=== PATIENT | male | born 1995 | race African-American/Black ===

== ENCOUNTER 2018-02-17 23:27 | Emergency (ER) | payer OTHER ==
--- NOTE | 2018-02-18 00:46 | RADIOLOGY REPORT (SQ) ---
EXAM DESCRIPTION: US SCROTUM COMPLETED DATE/TME: 02/17/2018 23:30 CLINICAL HISTORY: 22 years, Male, left testicular pain COMPARISON: None. LIMITATIONS: None. FINDINGS: 4.6 cm right testis, 4.5 cm left testis, two left-sided epididymal cyst/spermatocele measure up to 0.3 cm each, small left hydrocele, moderate left lateral varicocele with vessels diameter up to 0.3 cm, and otherwise normal size, shape, echotexture, and vascularity of scrotal structures. IMPRESSION: 1. Moderate left varicocele. 2. Normal testes.
--- NOTE | 2018-02-18 00:48 | ER Document Report ---
ED General - General Mode of Arrival: Ambulatory Information source: Patient TRAVEL OUTSIDE OF THE [place] IN LAST 30 DAYS: No <IMANI BUNCH - Last Filed: 02/18/18 02:58> <RONNY ROCHA - Last Filed: 02/18/18 04:13> - General Chief Complaint: Testicular Pain Stated Complaint: ABDOMINAL PAIN Time Seen by Provider: 02/17/18 23:55 Notes: 22 y.o. male presents to the ED with pain to his LT testicle and LLQ pain that he describes as a "tightness". Pt reports that he has been having this pain for the past couple of months that worsens with heavy lifting. Pt states that he went to the Urgent Care a few days ago and had an ultrasound that did not show any twisted tubes and was told that everything was normal. Pt reports that he has noted some edema to his LT testicle. He denies any dysuria, color change, discharge, blood in sperm or pain with sex. Pt also denies any fever, N/V/D, constipation or changes to his diet. He reports regular BMs that have been hard recently. Pt also notes a ZAYAS of onset yesterday. He states that she was drinking a smoothie yesterday and sneezed which had caused some of the smoothie to come up through his nose, a sore throat and a mild ZAYAS. Pt denies taking any medications at home other than Ibuprofen occasionally for his pain. He reports some relief with the Ibuprofen. (IMANI BUNCH) - Related Data Allergies/Adverse Reactions: No Known Allergies Allergy (Unverified 09/25/15 02:28) Past Medical History - General Information source: Patient - Social History Smoking Status: Unknown if Ever Smoked Family History: None Patient has suicidal ideation: No Patient has homicidal ideation: No Pulmonary Medical History: Reports: Hx Asthma Renal/ Medical History: Denies: Hx Peritoneal Dialysis - Immunizations Hx Diphtheria, Pertussis, Tetanus Vaccination: Yes <IMANI BUNCH - Last Filed: 02/18/18 02:58> - Social History Drug Abuse: None <RONNY ROCHA - Last Filed: 02/18/18 04:13> Review of Systems - Review of Systems Constitutional: See HPI. denies: Fever EENT: See HPI Cardiovascular: No symptoms reported Respiratory: No symptoms reported Gastrointestinal: See HPI, Abdominal pain. denies: Diarrhea, Nausea, Vomiting, Constipation Genitourinary: denies: Dysuria Male Genitourinary: See HPI, Testicular pain. denies: Penile discharge Musculoskeletal: No symptoms reported Skin: No symptoms reported Hematologic/Lymphatic: No symptoms reported Neurological/Psychological: See HPI, Headaches -: Yes All other systems reviewed and negative <IMANI BUNCH - Last Filed: 02/18/18 02:58> Physical Exam <IMANI BUNCH - Last Filed: 02/18/18 02:58> <RONNY ROCHA - Last Filed: 02/18/18 04:13> - Vital signs Vitals: Temp Pulse Resp BP Pulse Ox 98.2 F 84 18 112/71 98 02/17/18 23:50 02/17/18 23:50 02/17/18 23:50 02/17/18 23:50 02/17/18 23:50 - Notes Notes: PHYSICAL EXAM GENERAL: Alert, interacts well. No acute distress. HEAD: Normocephalic, atraumatic. EYES: Pupils equal, round, and reactive to light. Extraocular movements intact. ENT: Oral mucosa moist, tongue midline. NECK: Full range of motion. Supple. Trachea midline. LUNGS: Clear to auscultation bilaterally, no wheezes, rales, or rhonchi. No respiratory distress. HEART: Regular rate and rhythm. No murmurs, gallops, or rubs. ABDOMEN: Soft. TTP to the LLQ. Non-distended. Bowel sounds present in all 4 quadrants. No guarding, rebound, or rigidity. EXTREMITIES: Moves all 4 extremities spontaneously. No edema. No cyanosis. NEUROLOGICAL: Alert and oriented x3. Normal speech. PSYCH: Normal affect, normal mood. SKIN: Warm, dry, normal turgor. No rashes or lesions noted. GENITOURINARY: Cremasteric reflex intact bilaterally. Complains of mild TTP to LT testicle itself. Small amount of edema just above the LT testicle. Very small inguinal hernia palpable with cough, not elicited when barring down. No skin lesions, no erythema. (IMANI BUNCH) The very small inguinal hernia is on the left. (RONNY ROCHA) Course <IMANI BUNCH - Last Filed: 02/18/18 02:58> <RONNY ROCHA - Last Filed: 02/18/18 04:13> - Re-evaluation Re-evalutation: 02/18/18 02:52 Urinalysis unremarkable, gonorrhea and chlamydia negative, scrotal ultrasound was performed and reveals 2 left-sided epididymal cysts/spermatoceles, small left hydrocele and moderate left lateral varicocele, normal testes, good blood flow. Physical examination did reveal a very small left inguinal hernia. Both the varicocele in the hernia are likely contributing to his pain. Neither needs emergent surgery. Did discuss with the patient that either of these could possibly end up needing surgery. Recommended that the patient wear supportive underwear, follow with urology for the varicocele and return for significantly increased pain, swelling or any new or concerning symptoms. At present I do not really know what to make of his headache and stuffy nose after choking on a smoothie. Patient has no acute findings on neurologic examination, no suggestion of meningitis. Patient is recommended to use Advil and Tylenol and discharged to home. (RONNY ROCHA) - Vital Signs Vital signs: Temp Pulse Resp BP Pulse Ox 98 F 83 18 106/68 99 02/18/18 03:08 02/18/18 03:08 02/18/18 03:08 02/18/18 03:08 02/18/18 03:08 Discharge <IMANI BUNCH - Last Filed: 02/18/18 02:58> <RONNY ROCHA - Last Filed: 02/18/18 04:13> - Discharge Clinical Impression: Left testicular pain, Left varicocele, Mild left inguinal hernia Condition: Stable Disposition: HOME, SELF-CARE Additional Instructions: Hernia You have a hernia. A hernia forms at a weak spot in the abdominal wall. Bowel slips out of the abdominal cavity into the weak spot. Hernias tend to occur in the groin (especially in males), the fold of the thigh, the naval, or at a surgical scar. Surgical repair of the defect is usually necessary. The problem tends to get worse. It's important that you follow up as recommended, however yours is very mild and you may not end up needing surgery. Please wear supportive underwear and lift with your knees and not with your back. For now, you should avoid straining, heavy lifting, and vigorous exercise. Complications occur if the hernia becomes tightly stuck. You should come back immediately if the area becomes increasingly painful, swollen, or discolored, or if you develop abdominal pain and vomiting. Please use ibuprofen (Motrin or Advil) 600-800 mg every 8 hours as needed for pain or fever. You may also use acetaminophen (Tylenol) 1000 mg every 4-6 hours as needed for pain or fever. Please be aware that many medications contain acetaminophen, do not exceed a total of 1000 mg of acetaminophen every 6 hours. Referrals: CECILIA BOSCH MD [ACTIVE STAFF] - Follow up as needed LOCALID,RORY [Primary Care Provider] - Follow up as needed RICKY HERNANDEZ MD [[facility]] - Follow up as needed Scribe Attestation: 02/18/18 04:13 I personally performed the services described in the documentation, reviewed and edited the documentation which was dictated to the scribe in my presence, and it accurately records my words and actions. (RONNY ROCHA) Scribe Documentation - Scribe Written by Joaquin:: Joaquin Patton 02/18/18 0047 acting as scribe for :: Sophia <IMANI BUNCH - Last Filed: 02/18/18 02:58>
[2018-02-18 01:15] LABS: APPEARANCE,URINE CLEAR; BILIRUBIN,URINE NEGATIVE (NEGATIVE); COLOR,URINE YELLOW; GLUCOSE, URINE NEGATIVE (NEGATIVE); KETONES,URINE NEGATIVE (NEGATIVE); LEUKOCYTE ESTERASE,URINE NEGATIVE (NEGATIVE); NITRITE,URINE NEGATIVE (NEGATIVE); PROTEIN,URINE NEGATIVE (NEGATIVE); URINE SPECIFIC GRAVITY 1.014; UROBILINOGEN,URINE NEGATIVE mg/dL (<2.0)
[2018-02-18 02:42] LABS: CHLAM PCR NOT DETECTED (NOT DETECT); GON PCR NOT DETECTED (NOT DETECT)
[2018-02-18 03:09] VITALS: BP 106/68
== END 2018-02-18 03:09 | disposition home or self-care (01) ==
LOC: ER 23:27
DX: I86.1 Scrotal varices (principal); K40.90 Unilateral inguinal hernia, without obstruction or gangrene, not specified as recurrent; N50.812 Left testicular pain; R10.32 Left lower quadrant pain; N50.89 Other specified disorders of the male genital organs; R51 Headache; J02.9 Acute pharyngitis, unspecified; X50.0XXA Overexertion from strenuous movement or load, initial encounter; J45.909 Unspecified asthma, uncomplicated
CPT/HCPCS: 76870; 81001; 87491; 87591; 93976; 99284

== ENCOUNTER 2018-11-23 12:18 | Emergency (ER) | payer OTHER ==
--- NOTE | 2018-11-23 12:57 | ER Document Report ---
ED Extremity Problem, Lower - General Chief Complaint: Foot Injury Stated Complaint: FOOT/LEG PAIN Time Seen by Provider: 11/23/18 12:40 Primary Care Provider: [facility] [Provider [facility]] - Follow up as needed LOCALRORY ALEX [NO LOCAL MD] - Follow up as needed Mode of Arrival: Ambulatory Information source: Patient Notes: 23-year-old male presents to ED for complaint of left foot and ankle pain after he injured it while playing basketball yesterday. He does have swelling and bruising to the left lateral ankle. Patient is alert oriented respirations regular and unlabored speaking in full sentences walks with a even steady gait. TRAVEL OUTSIDE OF THE [place] IN LAST 30 DAYS: No - HPI Patient complains to provider of: Injury, Pain, Swelling Location: Ankle, Foot Occurred: Yesterday Where: Outdoors, Sports Onset/Duration: Persistent Quality of pain: Achy, Throbbing Severity: Moderate Pain Level: 4 Context: Other - Rolled his ankle Recent injury: Yes Associated symptoms: Painful ambulation Exacerbated by: Hanging down, Movement, Walking Relieved by: Elevation, Ice, Rest - Related Data Allergies/Adverse Reactions: No Known Allergies Allergy (Verified 11/23/18 12:22) Past Medical History - General Information source: Patient - Social History Smoking Status: Never Smoker Frequency of alcohol use: None Drug Abuse: None Lives with: Family Family History: None Patient has suicidal ideation: No Patient has homicidal ideation: No - Past Medical History Cardiac Medical History: Reports: None Pulmonary Medical History: Reports: Hx Asthma EENT Medical History: Reports: None Neurological Medical History: Reports: None Endocrine Medical History: Reports: None Renal/ Medical History: Reports: None GI Medical History: Reports: Other - Inguinal hernia not repaired yet Musculoskeletal Medical History: Reports None Skin Medical History: Reports None Psychiatric Medical History: Reports: None Traumatic Medical History: Reports: None Infectious Medical History: Reports: None Past Surgical History: Reports: Hx Oral Surgery - [place] teeth - Immunizations Immunizations up to date: Yes Hx Diphtheria, Pertussis, Tetanus Vaccination: Yes Review of Systems - Review of Systems Constitutional: No symptoms reported EENT: No symptoms reported Cardiovascular: No symptoms reported Respiratory: No symptoms reported Gastrointestinal: No symptoms reported Genitourinary: No symptoms reported Male Genitourinary: No symptoms reported Musculoskeletal: No symptoms reported, Ankle swelling - Left ankle pain and swelling ecchymosis to the lateral aspect of the foot and ankle Skin: No symptoms reported Hematologic/Lymphatic: No symptoms reported Neurological/Psychological: No symptoms reported -: Yes All other systems reviewed and negative Physical Exam - Vital signs Vitals: Temp Pulse Resp BP Pulse Ox 98.5 F 78 18 110/57 L 97 11/23/18 12:25 11/23/18 12:25 11/23/18 12:25 11/23/18 12:25 11/23/18 12:25 Interpretation: Normal - General General appearance: Appears well, Alert - HEENT Head: Normocephalic, Atraumatic Eyes: Normal Pupils: PERRL - Respiratory Respiratory status: No respiratory distress Chest status: Nontender Breath sounds: Normal Chest palpation: Normal - Cardiovascular Rhythm: Regular Heart sounds: Normal auscultation Murmur: No - Abdominal Inspection: Normal Distension: No distension Bowel sounds: Normal Tenderness: Nontender Organomegaly: No organomegaly - Back Back: Normal, Nontender - Extremities General upper extremity: Normal inspection, Nontender, Normal color, Normal ROM, Normal temperature General lower extremity: Normal temperature. No: Korey's sign Ankle: Tender, Ecchymosis, Edema. No: Abrasion, Deformity, Instability, Laceration, Limited ROM - Pain with range of motion, Positive Blue's test, Unable to bear weight Foot: Tender, Ecchymosis, Edema, No evidence of FB. No: Unable to bear weight - Neurological Neuro grossly intact: Yes Cognition: Normal Orientation: AAOx4 [place] Coma Scale Eye Opening: Spontaneous [place] Coma Scale Verbal: Oriented [place] Coma Scale Motor: Obeys Commands [place] Coma Scale Total: 15 Speech: Normal Motor strength normal: LUE, RUE, LLE, RLE Sensory: Normal - Psychological Associated symptoms: Normal affect, Normal mood - Skin Skin Temperature: Warm Skin Moisture: Dry Skin Color: Normal Course - Re-evaluation Re-evalutation: 11/23/18 21:11 The patient is nontoxic appearing with stable vitals. They are afebrile. Ankle exam shows no deformities with no obvious ligament instability. There is a normal pulse and sensation distally. There is no redness or signs of infection. X-rays show no acute fracture per the radiologist. Patient will be placed in an Rudi wrap for comfort. Crutches will be offered and given if requested. Patient will be instructed to follow-up with not better in 1 week, sooner for increasing pain, fever, redness, numbness, tingling, weakness, any further concerns. Patient will be instructed to rest, ice, elevate their ankle. - Vital Signs Vital signs: Temp Pulse Resp BP Pulse Ox 98.6 F 79 16 112/67 98 11/23/18 13:44 11/23/18 13:44 11/23/18 13:44 11/23/18 13:44 11/23/18 13:44 - Diagnostic Test Radiology reviewed: Image reviewed, Reports reviewed Procedures - Immobilization Left Ankle Time completed: 13:50 Pre-Proc Neuro Vasc Exam: Normal Immobilizer type: Rudi wrap, Ankle stirrup, Crutches Performed by: PCT Post-Proc Neuro Vasc Exam: Normal Alignment checked and good: Yes Discharge - Discharge Clinical Impression: Left ankle sprain Qualifiers: Encounter type: initial encounter Involved ligament of ankle: unspecified ligament Qualified Code(s): S93.402A - Sprain of unspecified ligament of left ankle, initial encounter Condition: Stable Disposition: HOME, SELF-CARE Instructions: Family Physicians / Practices Additional Instructions: SPRAINED ANKLE: Your sprained ankle results from stretching or tearing of the ligaments which support the ankle. This usually results from twisting the foot inward and under. The ligaments will require time and protection in order to heal properly. Many ankle sprains are quite disabling, and should be taken seriously. The usual treatment for an ankle sprain is cold packs; protection with tape, splints, or wraps; elevation; and staying off the ankle for at least a day. As the ankle improves, you can walk IF it's not painful to bear weight. Sports are best postponed until healing is complete. More serious sprains usually require strengthening exercises after early healing. Your physician has assessed the seriousness of the ligament injury to your ankle. However, the treatment may change, depending on how your ankle progresses. If further exams were recommended, it is important that you follow through. Call the doctor if your foot becomes numb, painful, or severely swollen. RUDI WRAP: A compression dressing (rudi wrap) has been placed. This helps hold the area still. It limits swelling and internal bleeding. The wrap should be comfortably snug -- not tight. You should feel a sense of pressure, but not severe pain under the wrap. Unless the physician tells you otherwise, you can adjust the wrap for comfort. If the wrap causes symptoms suggesting it's too tight -- uncomfortable pressure, swelling or discoloration beyond the wrap, numbness, or severe pain -- you must loosen the wrap. If these symptoms don't resolve promptly, return for re-evaluation. ANKLE STIRRUP SPLINT: You are to use an ankle brace called a stirrup splint. This type of brace allows you to place greater stresses on the ankle without risk of re-injury, and is often used for more severe ankle injuries such as avulsion fractures and ligament ruptures. The splint can be worn over a sock or tape. For proper support, wear the splint with a shoe over it. It's important that the splint fit properly. Adjust the heel tension, if needed. If your splint has air bladders, peel back the bottom of each air bladder, then move the Velcro attachment of the heel strap up or down. Air bladder pressure can be adjusted by pulling up the valve at the top, threading the air tube down into the main bladder, then blowing air into the bladder or squeezing it out. The two sides of the stirrup can be moved forward or back on your ankle by changing the attachment of the main straps. If you are unable to use the ankle comfortably in the splint, return for re-evaluation. USE OF CRUTCHES: The doctor has recommended that you not bear weight at this time. You will need to use crutches. Adjust the crutches so the tops come to about two inches under the armpit while you are standing upright. Use your hands -- not your armpits -- to support your weight. To get into a chair, support yourself with one crutch on the injured side. Hold the chair with the other hand, then lower yourself while putting all your weight on the good leg. Going up stairs is `good leg up, step up, then bring up crutches and bad leg.' Down stairs is `bad leg and crutches down, then bring good leg down.' If you develop numbness or swelling in an arm or hand, you are using the crutches incorrectly. Return if you are having any problems with the crutches. ICE & ELEVATION: Apply ice packs frequently against the painful area. Many different schedules are recommended, such as "20 minutes on, 20 minutes off" or "one hour ice, two hours rest." If you need to work, you may need to go longer between ice treatments. You should plan to have the area ice packed AT LEAST one-fourth of the time. The ice should be applied over the wrap, tape, or splint, or over a layer of cloth -- not directly against the skin. Some ice bags have a built-in cloth and can be put directly on the skin. Your injured part should be elevated as much as possible over the next 48 hours. Try to keep the injury above the level of the heart. Avoid use of the injured area. Elevation and rest will decrease the swelling. USE OF [id number] IBUPROFEN: Ibuprofen (Advil, Nuprin, Medipren, Motrin IB) is a medication for fever and pain control. In addition, it has anti- inflammatory effects which may be beneficial, especially in the treatment of injuries. It's best to take ibuprofen with food. Persons with ulcer disease or allergy to aspirin should notify their physician of this before taking ibuprofen. Ibuprofen can be given every four to six hours, for a total of four doses daily. Age Pain or fever dose Antiinflammatory dose 6-8 yr 200 mg (1 tab) 200 mg (1 tab) 9-11 yr 200 mg (1 tab) 200-400 mg (1-2 tab) 11-14 yr 200-400 mg (1-2 tab) 400 mg (2 tab) 15-adult 400 mg (2 tab) 600 mg (3 tab) FOLLOW-UP CARE: If you have been referred to a physician for follow-up care, call the physicians office for an appointment as you were instructed or within the next two days. If you experience worsening or a significant change in your symptoms, notify the physician immediately or return to the Emergency Department at any time for re-evaluation. Forms: Special Work Note, Return to Work Referrals: LOCALMD,NO [NO LOCAL MD] - Follow up as needed [facility] [Provider Group] - Follow up as needed
--- NOTE | 2018-11-23 13:24 | RADIOLOGY REPORT (SQ) ---
EXAM DESCRIPTION: ANKLE LEFT COMPLETE COMPLETED DATE/TIME: 11/23/2018 1:11 pm REASON FOR STUDY: pain and injury COMPARISON: Left foot three views NUMBER OF VIEWS: Three views. TECHNIQUE: AP, lateral, and oblique radiographic images acquired of the left ankle. LIMITATIONS: None. FINDINGS: MINERALIZATION: Normal. BONES: No acute fracture or dislocation. No worrisome bone lesions. JOINTS: Small tibiotalar joint effusion. Normal alignment at the ankle mortise SOFT TISSUES: There is lateral and anterior ankle swelling OTHER: No other significant finding. IMPRESSION: Left tibiotalar ankle joint effusion with anterior and lateral soft tissue swelling. No acute displaced fracture or disruption of the ankle mortise TECHNICAL DOCUMENTATION: JOB ID: [id number] [employer]- All Rights Reserved Reading location - IP/workstation name: [email or web address]
--- NOTE | 2018-11-23 13:25 | RADIOLOGY REPORT (SQ) ---
EXAM DESCRIPTION: FOOT LEFT COMPLETE COMPLETED DATE/TIME: 11/23/2018 1:11 pm REASON FOR STUDY: pain and injury COMPARISON: Left ankle three views same date NUMBER OF VIEWS: Three views. TECHNIQUE: AP, lateral and oblique radiographic images acquired of the left foot. LIMITATIONS: None. FINDINGS: MINERALIZATION: Normal. BONES: No acute fracture or dislocation. No worrisome bone lesions. JOINTS: Tibiotalar joint effusion is present. SOFT TISSUES: Mild lateral and anterior ankle soft tissue swelling. No foreign body. OTHER: No other significant finding. IMPRESSION: Soft tissue swelling. No fracture. Specifically, no fracture at the base of the 5th va tatarsal is identified TECHNICAL DOCUMENTATION: JOB ID: [id number] [employer]- All Rights Reserved Reading location - IP/workstation name: [email or web address]
[2018-11-23 13:59] VITALS: BP 112/67
== END 2018-11-23 13:46 | disposition home or self-care (01) ==
LOC: ER 12:18
DX: S93.402A Sprain of unspecified ligament of left ankle, initial encounter (principal); X58.XXXA Exposure to other specified factors, initial encounter; Y93.67 Activity, basketball; Y92.39 Other specified sports and athletic area as the place of occurrence of the external cause
CPT/HCPCS: 99283; 73610; 73630; L1902